=== PATIENT | female | born 1965 | race Caucasian/White ===

== ENCOUNTER 2016-11-08 19:54 | Emergency (ER) | payer OTHER ==
[~2016-11-08] VITALS: Ht 165.1 cm; Wt 95.3 kg
--- NOTE | 2016-11-08 20:15 | NUR ---
PT BIB SELF C/O R BREAST PAIN X1 DAY WHICH RADIATES TO THE BACK. DENIES "CHEST PAIN". DENIES N/V/D. NO OTHER COMPLAINTS. PT HAS HX OF ABNORMAL MAMMOGRAM WITH BIOPSY SCHEDULED LATER THIS MONTH. DENIES NIPPLE DISCHARGE. NAD NOTED. IN ER BED 09.
--- NOTE | 2016-11-08 20:52 | NUR ---
CALLED RADIOLOGY; US TECH EN ROUTE
[2016-11-08] MEDS ORDERED: ACETAMINOPHEN ES 500 MG TABLET ONE (20:58)
--- NOTE | 2016-11-08 20:59 | NUR ---
US TECH AT BEDSIDE
[2016-11-08] MEDS ORDERED: ACETAMINOPHEN ES 500 MG TABLET PO ONE (21:00)
[2016-11-08 22:00] VITALS: BP 141/80
--- NOTE | 2016-11-08 22:00 | NUR ---
Patient discharged to home in stable condition. Written and verbal after care instructions given. Patient verbalizes understanding of instruction.
== END 2016-11-08 22:00 | disposition home or self-care (01) ==
LOC: ER 19:54
DX: N60.01 Solitary cyst of right breast (principal); I10 Essential (primary) hypertension; E11.9 Type 2 diabetes mellitus without complications; Z90.710 Acquired absence of both cervix and uterus; Z88.6 Allergy status to analgesic agent; Z88.2 Allergy status to sulfonamides; Z88.8 Allergy status to other drugs, medicaments and biological substances; Z98.890 Other specified postprocedural states
CPT/HCPCS: 76642; 99284; A4606; Z7610